=== PATIENT | female | born 1985 | race Caucasian/White ===

== ENCOUNTER 2016-04-14 11:11 | Inpatient (IN) | payer MEDICAID ==
[~2016-04-14] VITALS: Ht 152.4 cm; Wt 113.6 kg
[~2016-04-14 11:11] MED LIST: ACET325T33 PO
[2016-04-14 12:25] VITALS: Ht 152.4 cm; Wt 113.6 kg
[2016-04-14 12:35] VITALS: BP 125/71; PULSE 101; RESP 18
[2016-04-14] MEDS ORDERED: PREN1TAB62 PO (12:37)
--- NOTE | 2016-04-14 14:25 | HP ---
Date/Time of Note Date/Time of Note DATE: 04/14/16 TIME: 14:20 OB - History Hx of Present Free Text/Dictation admitted from [facility] at 38 weeks after confirmation of SROM Estimated Due Date: Apr 28, 2016 : 1 Para: 0 Care: Good Care Ultrasounds: Normal mid trimester US Obstetrical Complications: Other (asthma) Medical Complications: None Past Family/Social History * Past Medical, Surgical, Family and Obstetric Histories reviewed from chart. Blood Type: O+ Rubella: immune RPR/VDRL: Negative GBS Status: Negative HBsAG: Negative OB Admission Exam Vital Signs Vital Signs Vital Signs Date Time Temp Pulse Resp B/P Pulse Ox O2 Delivery O2 Flow Rate FiO2 04/14/16 12:35 98.3 101 18 125/71 100 Room Air Physical Exam HEENT: WNL Heart: Rhythm Normal Lungs: Clear, Equal Abdomen: WNL Extremities: Normal Reflexes: Normal Cervical Dilatation: 1cm Effacement: 25% Station: -3 Membranes: Ruptured Amniotic Fluid: Clear Heart Rate: 140's Accelerations: Accelerations Present Decelerations: No Decelerations Varibility: Moderate Contractions on Admission: None OB Assessment/Plan Other Assessment: SROM at term Induction Method: per Misoprostol Protocol SANDRA HOUSE MD Apr 14, 2016 14:25
[2016-04-14] MEDS ORDERED: DINOPROSTONE 10 MG VAG SUPP VAG ONE (15:00)
[2016-04-14] MEDS ORDERED: CARBOPROST 250 MCG INJ IM PRN (15:00)
[2016-04-14] MEDS ORDERED: OXYTOCIN 30 UNITS/LR 500 ML IV PRN (15:00)
[2016-04-14] MEDS ORDERED: LACTATED RINGER'S 1,000 ML IV PRN (15:00)
[2016-04-14] MEDS ORDERED: AMPICILLIN 2 GM/NS (PMX) 100 ML IV ONE (15:00)
[2016-04-14] MEDS ORDERED: LIDOCAINE 1% (MPF) 30 ML INJ INJ PRN (15:00)
[2016-04-14] MEDS ORDERED: BUTORPHANOL 2 MG INJ IV PRN (15:00)
[2016-04-14] MEDS ORDERED: OXYTOCIN 30 UNITS/LR 500 ML IV SCH ×2 (15:00)
[2016-04-14] MEDS ORDERED: METHYLERGONOVINE 0.2 MG INJ IM PRN (15:00)
[2016-04-14] MEDS ORDERED: MISOPROSTOL 200 MCG TAB PR PRN (15:00)
[2016-04-14] MEDS: LACTATED RINGER'S 1,000 ML IV SCH (17:19)
[2016-04-14 17:44] LABS: BASOPHILS % 0.3 % (0.0-2.0); EOSINOPHILS % 0.4 % (0.0-7.0); HEMATOCRIT 39.6 % (37.0-47.0); HEMOGLOBIN 13.4 g/dl (12.0-16.0); LYMPHOCYTES # 2.6 10^3/ul (0.8-2.9); LYMPHOCYTES % 25.2 % (15.0-51.0); MEAN CORPUSCULAR HEMOGLOBIN 29.8 pg (29.0-33.0); MEAN CORPUSCULAR HGB CONC 33.8 g/dl (32.0-37.0); MEAN CORPUSCULAR VOLUME 88.2 fl (82.0-101.0); MEAN PLATELET VOLUME 9.2 fl (7.4-10.4); MONOCYTE # 0.8 10^3/ul (0.3-0.9); MONOCYTES % 7.7 % (0.0-11.0); NEUTROPHIL # 6.8 10^3/ul (1.6-7.5); NEUTROPHILS % 66.4 % (39.0-77.0); PLATELET COUNT 260 10^3/UL (140-440); RED BLOOD COUNT 4.49 10^6/ul (4.20-5.40); RED CELL DISTRIBUTION WIDTH 15.4 % (11.5-14.5); UNCORRECTED WBC 10.2 10^3/ul (4.8-10.8); WHITE BLOOD COUNT 10.2 10^3/ul (4.8-10.8)
[2016-04-14 17:45] LABS: CONDITION 1; LH ANALYZER COMMENTS 1
[2016-04-14 17:54] LABS: INR 0.93; PROTIME 12.5 Sec (12.2-14.2)
[2016-04-14 17:55] LABS: PARTIAL THROMBOPLASTIN TIME 27.1 Sec (25.0-35.0)
[2016-04-14] MEDS: AMPICILLIN 1 GM/NS (PMX) 50 ML IV SCH (22:43)
[2016-04-14] MEDS ORDERED: TERBUTALINE 1 ML ONE (23:21)
[2016-04-14] MEDS ORDERED: TERBUTALINE 1 MG/ML INJ SC STA (23:27)
[2016-04-15] MEDS ORDERED: FENTAnyl 2MCG/ML-ROPIV 0.2% 100 ML ONE (00:21)
[2016-04-15] MEDS ORDERED: NALOXONE (0.4 MG/ML) INJ IV PRN (01:00)
[2016-04-15] MEDS ORDERED: FENTAnyl 2MCG/ML-ROPIV 0.2% 100 ML BAG EPI SCH (01:00)
[2016-04-15] MEDS: LACTATED RINGER'S 1,000 ML IV SCH ×2 (01:08→07:42)
[2016-04-15] MEDS: AMPICILLIN 1 GM/NS (PMX) 50 ML IV SCH ×3 (02:43→10:38)
[2016-04-15] MEDS ORDERED: TERBUTALINE 1 MG/ML INJ SC ONE (03:00)
[2016-04-15] MEDS ORDERED: ACETAMINOPHEN 325 MG TAB PO ONE (06:30)
--- NOTE | 2016-04-15 12:19 | LDN ---
Date/Time of Note Date/Time of Note DATE: 04/15/16 TIME: 12:15 Delivery Summary Placenta Delivered: Spontaneously Meconium: none Perineum intact?: No Perineal laceration: 2 Anesthesia type: Epidural Estimated blood loss: 350 Sponge & Needle done & correct: Yes All needle counts correct: Yes Any foreign bodies felt in the: No Problems: Delivery Information Sex Sex: male Apgars 1 Minute: 9 5 Minute: 9 Suctioning Nose & mouth suctioned at lorelei: Yes Delee suction performed: No Umbilical Cord Umbilical cord with: 3 Vessels Cord presentations: no nuchal cord Cord Blood was obtained: Yes Mother & Baby Disposition Disposition Laboratory Tests Test 04/14/16 13:00 04/14/16 17:19 Membranes Rupture POSITIVE Activated Partial Thromboplast Time 27.1Sec Basophils # 0.010^3/ul Basophils % 0.3% Blood Morphology Comment Eosinophils # 0.010^3/ul Eosinophils % 0.4% Hematocrit 39.6% Hemoglobin 13.4g/dl INR International Normalized Ratio 0.93 Lymphocytes # 2.610^3/ul Lymphocytes % 25.2% Mean Corpuscular Hemoglobin 29.8pg Mean Corpuscular Hemoglobin Concent 33.8g/dl Mean Corpuscular Volume 88.2fl Mean Platelet Volume 9.2fl Monocytes # 0.810^3/ul Monocytes % 7.7% Neutrophils # 6.810^3/ul Neutrophils % 66.4% Nucleated Red Blood Cells # 0.010^3/ul Nucleated Red Blood Cells % 0.0/100WBC Platelet Count 08008^3/UL Prothrombin Time 12.5Sec Prothrombin Time Ratio 1.0 Rapid Plasma Reagin NONREACTIVE Red Blood Count 4.4910^6/ul Red Cell Distribution Width 15.4% White Blood Count 10.210^3/ul Current Medications Medications (Trade) Dose Ordered Sig/Alysha Route PRN Reason Start Time Stop Time Status Last Admin Dose Admin Lactated Ringer's 1,000 ml @ 125 mls/hr Q8H IV 04/14/16 14:31 04/15/16 07:42 Ampicillin 100 ml @ 100 mls/hr ONCE ONCE IV 04/14/16 15:00 04/14/16 15:59 DC 04/14/16 18:14 Ampicillin (Ampicillin 1 Gm/ NS (Pmx)) 50 ml @ 100 mls/hr Q4 IV 2/13/17 18:00 04/15/16 03:25 DC 04/15/16 02:43 Dinoprostone (Cervidil Vaginal Supp) 10 mg ONCE ONCE VAG 04/14/16 15:00 04/14/16 15:01 DC 04/14/16 18:14 Butorphanol Tartrate (Stadol) 2 mg Q2H PRN IV PAIN 04/14/16 15:00 Lidocaine 30 ml 30 ml ONCE PRN INJ EPISIOTOMY/TEARING 04/14/16 15:00 Oxytocin/Lactated Ringer's 500 ml @ 125 mls/hr ONCE -MAY REPEAT X1 IV 04/14/16 15:00 04/15/16 11:44 Oxytocin/Lactated Ringer's 500 ml @ 125 mls/hr ONCE IV 04/14/16 15:00 Lactated Ringer's 1,000 ml @ 2,000 mls/hr Q30M PRN IV PRE-EPIDURAL BOLUS 04/14/16 15:00 Oxytocin/Lactated Ringer's 500 ml @ 0 mls/hr ONCE PRN IV For Hemorrhage Management 04/14/16 15:00 Methylergonovine Maleate (Methergine) 0.2 mg ONCE PRN IM VAGINAL BLEEDING 04/14/16 15:00 Carboprost Tromethamine (Hemabate) 250 mcg ONCE PRN IM VAGINAL BLEEDING 04/14/16 15:00 Misoprostol 1000 mcg 1,000 mcg ONCE PRN OH VAGINAL BLEEDING 04/14/16 15:00 Terbutaline Sulfate (Brethine) 1 ml @ ud STK-MED ONCE .ROUTE 04/14/16 23:21 04/14/16 23:22 DC Terbutaline Sulfate 0.25 mg 0.25 mg ONCE STAT SC 04/14/16 23:27 04/14/16 23:30 DC 04/14/16 23:33 Fentanyl/ Ropivacaine 100 ml @ ud STK-MED ONCE .ROUTE 04/15/16 00:21 04/15/16 00:22 DC Naloxone HCl (Narcan) 0.2 mg Q2M PRN IV FOR RESP RATE 8 OR LESS 04/15/16 01:00 Fentanyl/ Ropivacaine 100 ml EPIDURAL (PCEA) EPI 04/15/16 01:00 04/15/16 08:11 Terbutaline Sulfate 0.25 mg 0.25 mg ONCE ONCE SC 04/15/16 03:00 04/15/16 03:01 DC 04/15/16 02:35 Ampicillin (Ampicillin 1 Gm/ NS (Pmx)) 50 ml @ 100 mls/hr Q4H IV 04/15/16 06:30 04/15/16 10:38 Acetaminophen (Tylenol Tab) 650 mg ONCE ONCE PO 04/15/16 06:30 04/15/16 06:39 DC 04/15/16 06:42 Mom & Baby to Maternity; Good: Yes Mom transferred to: Med/Surg Baby to NICU: No HECTOR ESPARZA MD Apr 15, 2016 12:19
[2016-04-15] MEDS ORDERED: IBUPROFEN 600 MG TAB PO ONE (13:00)
[2016-04-15 13:45] VITALS: BP 133/75; PULSE 86; RESP 18
[2016-04-15] MEDS ORDERED: OXYTOCIN 30 UNITS/LR 500 ML IV SCH (14:10)
[2016-04-15 14:15] VITALS: BP 136/73; PULSE 108; RESP 17
[2016-04-15] MEDS ORDERED: CARBOPROST 250 MCG INJ IM PRN ×2 (14:30→15:30)
[2016-04-15] MEDS ORDERED: LANOLIN 7 GM TUBE TOP PRN ×2 (14:30→15:30)
[2016-04-15] MEDS ORDERED: DIBUCAINE 1% 30 GM OINT PR PRN ×2 (14:30→15:30)
[2016-04-15] MEDS ORDERED: ACETAMINOPHEN 500 MG TAB PO PRN (14:30)
[2016-04-15] MEDS ORDERED: OXYTOCIN 30 UNITS/LR 500 ML IV PRN ×2 (14:30→15:30)
[2016-04-15] MEDS ORDERED: BENZOCAINE 20% 56 ML SPRAY TOP PRN (14:30)
[2016-04-15] MEDS ORDERED: METHYLERGONOVINE 0.2 MG INJ IM PRN ×2 (14:30→15:30)
[2016-04-15] MEDS ORDERED: MISOPROSTOL 200 MCG TAB PR PRN ×2 (14:30→15:30)
[2016-04-15] MEDS ORDERED: WITCH HAZEL/GLYCERIN PAD PR PRN (14:30)
[2016-04-15] MEDS ORDERED: OXYCODONE/ASPIRIN (4.88/325) TAB PO PRN ×2 (14:30)
[2016-04-15] MEDS ORDERED: IBUPROFEN 600 MG TAB PO PRN (14:30)
[2016-04-15] MEDS ORDERED: SENNA/DOCUSATE NA (8.6MG/50MG) TAB PO PRN (14:30)
[2016-04-15] MEDS: LACTATED RINGER'S 1,000 ML IV* SCH ×2 (15:23→23:23)
[2016-04-15] MEDS ORDERED: ACETAMINOPHEN/CODEINE #3 TAB PO PRN ×2 (15:30)
[2016-04-15] MEDS ORDERED: ZOLPIDEM 5 MG TAB PO PRN (15:30)
[2016-04-15 16:30] VITALS: BP 135/85; PULSE 72; RESP 18
[2016-04-15] MEDS: WITCH HAZEL/GLYCERIN PAD PR PRN (16:51)
[2016-04-15] MEDS: BENZOCAINE 20% 56 ML SPRAY TOP PRN (16:52)
[2016-04-15] MEDS: CEPHALEXIN 500 MG CAP PO SCH (18:14)
[2016-04-15] MEDS: IBUPROFEN 600 MG TAB PO SCH (18:15)
[2016-04-15 20:00] VITALS: BP 108/59; PULSE 96; RESP 18
[2016-04-15] MEDS: MAGNESIUM HYDROXIDE 30ML CUP PO SCH (22:26)
[2016-04-15] MEDS: SENNA/DOCUSATE NA (8.6MG/50MG) TAB PO SCH (22:26)
[2016-04-16] MEDS: CEPHALEXIN 500 MG CAP PO SCH ×5 (00:42→23:35)
[2016-04-16] MEDS: IBUPROFEN 600 MG TAB PO SCH ×5 (00:42→23:35)
[2016-04-16 04:00] VITALS: BP 103/51; PULSE 20; RESP 18
[2016-04-16] MEDS: LACTATED RINGER'S 1,000 ML IV* SCH (07:23)
[2016-04-16 07:46] LABS: BASOPHILS % 0.4 % (0.0-2.0); EOSINOPHILS # 0.1 10^3/ul (0.0-0.5); EOSINOPHILS % 0.6 % (0.0-7.0); HEMATOCRIT 29.2 % (37.0-47.0); LYMPHOCYTES # 2.5 10^3/ul (0.8-2.9); LYMPHOCYTES % 21.7 % (15.0-51.0); MEAN CORPUSCULAR HEMOGLOBIN 30.5 pg (29.0-33.0); MEAN CORPUSCULAR HGB CONC 34.2 g/dl (32.0-37.0); MEAN CORPUSCULAR VOLUME 89.2 fl (82.0-101.0); MEAN PLATELET VOLUME 8.9 fl (7.4-10.4); MONOCYTE # 0.7 10^3/ul (0.3-0.9); MONOCYTES % 6.3 % (0.0-11.0); NEUTROPHIL # 8.3 10^3/ul (1.6-7.5); PLATELET COUNT 202 10^3/UL (140-440); RED BLOOD COUNT 3.28 10^6/ul (4.20-5.40); RED CELL DISTRIBUTION WIDTH 15.7 % (11.5-14.5); UNCORRECTED WBC 11.7 10^3/ul (4.8-10.8); WHITE BLOOD COUNT 11.7 10^3/ul (4.8-10.8)
[2016-04-16 07:52] LABS: CONDITION 1; LH ANALYZER COMMENTS 1
[2016-04-16 08:00] VITALS: BP 107/63; PULSE 83; RESP 17
[2016-04-16] MEDS: MAGNESIUM HYDROXIDE 30ML CUP PO SCH ×2 (09:52→21:00)
[2016-04-16] MEDS: SENNA/DOCUSATE NA (8.6MG/50MG) TAB PO SCH ×2 (09:52→21:00)
--- NOTE | 2016-04-16 13:42 | DS ---
Date/Time of Note Date/Time of Note home next day DATE: 04/16/16 TIME: 13:41 Obstetrical Discharge Record Final Diagnosis Final Diagnosis: Term delivered Vaginal Delivery Obstetrical Delivery: Spontaneous, Laceration, Repaired Complications Augmentation: Yes Condition on Discharge Physical Assessment Last Vitals: see nurses notes Voiding: Yes Bowel Movement: Yes Breast: Soft, non-tender, Filling Fundus: Firm Abdomen and Incision: soft BS + Episiotomy: NA perineum: healing Calf Tenderness: No Patient Condition: Good SANDRA HOUSE MD Apr 16, 2016 13:42
--- NOTE | 2016-04-16 13:56 | PD.PPDC ---
RISK MANAGEMENT MANAGER Discharge Instruction Provider Information Physician Information 30 y/o female had vaginal delivery Diagnosis Final Diagnosis: S/P vaginal delivery Condition Patient Condition: Good Diet Diet: Resume Regular Diet Activity/Restrictions Activity: Normal Activity May Shower Restrictions: Nothing in the Vagina Return to Work or School: Jun 02, 2016 Follow-up Follow-up with Physician: 4, Day/Days (in clinic ) Return to clinic for OB Instructions: Breast Tenderness Depression SANDRA HOUSE MD Apr 16, 2016 13:56
[2016-04-16] MEDS ORDERED: IBUP-1542 PO (13:57)
[2016-04-16 16:00] VITALS: BP 119/63; PULSE 85; RESP 19
[2016-04-16] MEDS: BENZOCAINE 20% 56 ML SPRAY TOP PRN (19:11)
[2016-04-16] MEDS: WITCH HAZEL/GLYCERIN PAD PR PRN (19:12)
--- NOTE | 2016-04-16 21:25 | NSTRPT ---
NST Information Datetime Report Generated by CPN: 04/16/2016 21:25 Datetime: 04/14/2016 08:16 NST Information EGA: 38.0 Test Number: 10 Time on Monitor: 04/14/2016 08:50 Time off Monitor: 04/14/2016 09:30 NST Duration (Min): 40 Reason for NST: Other Reason for NST Other: Asthma Test and Monitor Explained: Monitor Explained; Test Explained; Verbalized Understanding Pulse: 91 Resp: 18 SBP: 125 DBP: 76 Test Evaluation NST Interventions: PO Hydration Patient States Movement: Present Contraction Frequency: 0 FHR Baseline : 130 Variability: Moderate 6-25bpm Accelerations: 15X15 Decelerations: None FHR Category: Category I NST Results: Reactive Provider Notified: Yves Comments: To u/s LILIAN-9.6 cm, pt states of gush of fluid this monring that trickled down her leg, p revious LILIAN-15. [facility]. 0901-Dr Marinelli paged, [phone]-paged [phone] to Dr Marinelli, pt to triage for r/o SROM, report to Maria Isabel RN in triage. 0946-POC expl ained to pt, states understanding and denies further questions at this time. Pt with friend to Triag e. Electronically Signed By E-Signature: with User ID: [id number] Datetime: 04/10/2016 08:22 NST Information EGA: 37.3 NST Duration (Min): 28 Datetime: 04/07/2016 08:16 NST Information EGA: 37.0 NST Duration (Min): 36 Datetime: 04/03/2016 08:48 NST Information EGA: 36.3 NST Duration (Min): 63 Datetime: 03/31/2016 08:25 NST Information EGA: 36.0 NST Duration (Min): 45 Datetime: 03/27/2016 08:20 NST Information EGA: 35.3 NST Duration (Min): 39 Datetime: 03/24/2016 08:19 NST Information EGA: 35.0 NST Duration (Min): 21 Datetime: 03/20/2016 08:15 NST Information EGA: 34.3 NST Duration (Min): 78 Datetime: 03/17/2016 08:20 NST Information EGA: 34.0 NST Duration (Min): 20 Datetime: 03/13/2016 10:52 NST Information EGA: 33.3 NST Duration (Min): 28
[2016-04-17 03:58] VITALS: BP 112/62; PULSE 83; RESP 18
[2016-04-17] MEDS: CEPHALEXIN 500 MG CAP PO SCH ×2 (05:25→11:38)
[2016-04-17] MEDS: IBUPROFEN 600 MG TAB PO SCH ×2 (05:25→11:38)
[2016-04-17 07:45] VITALS: BP 110/62; PULSE 83; RESP 19
[2016-04-17] MEDS: MAGNESIUM HYDROXIDE 30ML CUP PO SCH (08:07)
[2016-04-17] MEDS: SENNA/DOCUSATE NA (8.6MG/50MG) TAB PO SCH (08:07)
[2016-04-17] MEDS: BENZOCAINE 20% 56 ML SPRAY TOP PRN (08:08)
[2016-04-17] MEDS: WITCH HAZEL/GLYCERIN PAD PR PRN (08:08)
[2016-04-17] MEDS ORDERED: DIPHTH/TET/ACEL PERTUSS (ADULT) 0.5 ML VIAL IM* ONE ×2 (09:00)
[2016-04-17] MEDS ORDERED: VARICELLA VACCINE LIVE/PF 1,350 UNIT/0.5 ML ML SC* ONE (09:00)
[2016-04-17] MEDS ORDERED: MEASLES,MUMPS,RUBELLA VACCINE INJ SC* ONE (09:00)
== END 2016-04-17 15:05 | disposition home or self-care (01) | DRG 775 ==
LOC: OBT 11:11 → L-D 11:11 → OBT 14:24 → L-D 14:25 → PP1 04-15 14:30
PROVIDERS: ADMIT Obstetrics & Gynecology; ATTEND Obstetrics & Gynecology
PROC: 10E0XZZ Delivery of Products of Conception, External Approach (ICD-10-PCS; principal; 2016-04-14)
PROC: 0KQM0ZZ Repair Perineum Muscle, Open Approach (ICD-10-PCS; 2016-04-14)
DX: O70.1 Second degree perineal laceration during delivery (principal); Z37.0 Single live birth; Z68.42 Body mass index [BMI] 45.0-49.9, adult; O99.214 Obesity complicating childbirth; E66.01 Morbid (severe) obesity due to excess calories; Z3A.38 38 weeks gestation of pregnancy
CPT/HCPCS: 62319; 84112; 85025; 85610; 85730; 86592; 86900; 86901; 90715; 90716; 99464; G0463; J0290; J2590; J3010; J3105; J7120

== ENCOUNTER 2016-06-15 11:04 | Emergency (ER) | payer MEDICAID ==
[~2016-06-15] VITALS: Ht 157.5 cm; Wt 104.5 kg
[~2016-06-15 11:04] MED LIST changes: -ACET325T33 PO; +IBUP-1542 PO; +PREN1TAB62 PO
[2016-06-15 11:05] VITALS: Ht 157.5 cm; Wt 104.5 kg
[2016-06-15] MEDS ORDERED: KETOROLAC 30 MG INJ IM STA (11:19)
[2016-06-15] MEDS ORDERED: HYDR-906 PO (11:26)
[2016-06-15] MEDS ORDERED: CYCL-319 PO (11:26)
[2016-06-15] MEDS ORDERED: IBUP-1542 PO (11:26)
[2016-06-15 11:30] LABS: URINE BLOOD (Dip) POC Trace-intact (NEGATIVE)
[2016-06-15] MEDS ORDERED: HYDROCODONE/APAP (10/325) TAB PO ONE (11:30)
--- NOTE | 2016-06-15 11:34 | ERD ---
ER Documentation Chief Complaint Date/Time DATE: 06/15/16 TIME: 11:29 Chief Complaint 9/10 lower back pain x 4 days UKN cause HPI Patient is a 30-year-old female who presents to the emergency department with lower back pain 4 days. Patient states 4 days ago she was sitting on the couch when she sat down awkwardly and started to have sudden pain. Patient states pain originates in her lower back and occasionally radiates her bilateral legs. Patient reports taking ibuprofen for symptoms with minimal relief. Patient denies any saddle anesthesia, urinary incontinence, stool incontinence, fevers, chills, night pain. Patient denies any recent traumas or falls. Patient states that she had an epidural 2 months ago and she is unsure of this is related to her lower back pain. Patient states she is having pain with ambulating. ROS All systems reviewed and are negative except as per history of present illness. Medications Home Meds Active Scripts Cyclobenzaprine Hcl* (Cyclobenzaprine Hcl*) 10 Mg Tablet, 10 MG PO TID, #15 TAB Prov:RENAE WHALEY PA-C 06/15/16 Ibuprofen* (Motrin*) 600 Mg Tab, 600 MG PO Q6, #30 TAB Prov:RENAE WHALEY PA-C 06/15/16 Hydrocodone/Acetaminophen (Boise 5-325 Tablet) 1 Each Tablet, 1 TAB PO Q6H Y for PAIN, #10 TAB Prov:RENAE WHALEY PA-C 06/15/16 Ibuprofen* (Ibuprofen*) 600 Mg Tablet, 600 MG PO Q6, #20 TAB 0 Refills Prov:SANDRA HOUSE MD 04/16/16 Reported Medications Vit-Iron Fumarate-FA ( Vitamin Tablet) 1 Each Tablet, 1 TAB PO DAILY, TAB 04/14/16 Allergies Allergies: Coded Allergies: No Known Allergy (Unverified , 04/14/16) PMhx/Soc History of Surgery: No Anesthesia Reaction: No Hx Neurological Disorder: No Hx Respiratory Disorders: No Hx Cardiac Disorders: No Hx Psychiatric Problems: No Hx Miscellaneous Medical Probl: No Hx Alcohol Use: No Hx Substance Use: No Hx Tobacco Use: No FmHx Family History: No diabetes Physical Exam Vitals Vital Signs Date Time Temp Pulse Resp B/P Pulse Ox O2 Delivery O2 Flow Rate FiO2 06/15/16 11:05 98.3 87 18 124/67 99 Physical Exam GENERAL: Well-developed, well-nourished female. Appears in no acute distress. Eating in full sentences HEAD: Normocephalic, atraumatic. EYES: Pupils are equally reactive bilaterally. EOMs grossly intact. No conjunctival erythema. ENT: Moist mucous membranes. No uvula deviation. No kissing tonsils. NECK: Supple. No meningismus. Normal range of motion of the neck. No midline tenderness. LUNG: Clear to auscultation bilaterally. No rhonchi, wheezing, rales or coarse breath sounds. HEART: Regular rate and rhythm. No murmurs, rubs or gallops. BACK: No midline tenderness. Tender to palpation of bilateral paraspinous lumbar muscles. EXTREMITIES: Equal pulses bilaterally. No peripheral clubbing, cyanosis or edema. No unilateral leg swelling. NEUROLOGIC: Alert and oriented. Moving all four extremities without any difficulty. Normal speech. SKIN: Normal color. Warm and dry. No rashes or lesions. Results 24 hrs Current Medications Medications (Trade) Dose Ordered Sig/Alysha Route PRN Reason Start Time Stop Time Status Last Admin Dose Admin Ketorolac Tromethamine (Toradol) 30 mg ONCE STAT IM 06/15/16 11:19 06/15/16 11:21 DC Acetaminophen/ Hydrocodone Bitart (Boise (10/325)) 1 tab ONCE ONCE PO 06/15/16 11:30 06/15/16 11:31 Procedures/MDM MEDICAL DECISION MAKING: This is a 22-year-old female who presents with lower back pain x 4 days. Patient denied any recent traumas or falls. Vital signs were reviewed. Patient was afebrile. Patient denied any saddle anesthesia, urinary incontinence, bowel incontinence, night pain or recent trauma. Urine was negative. Urine dip was negative for infection or hematuria. Given that the patient denies any recent falls or trauma, x-ray imaging of the spine was not obtained. Given these findings, the patient's presentation is most consistent with lumbar strain versus muscle spasms. I have a much lower clinical concern for cauda equine syndrome, spinal fractures, epidural abscess, spinal metastases, osteomyelitis, aortic dissection, ruptured or leaking AA, DJD, pyelonephritis or nephrolithiasis. I explained to the patient I am unsure if her back pain is due to recent epidural. She was advised that she should follow-up with her primary care physician for further management of her symptoms. Patient also advised that she may need to see an logistics management specialist and/or obtain MRI imaging if the pain persists. PRESCRIPTIONS: Ibuprofen, Boise, Flexeril DISCHARGE: At this time, patient is stable for discharge and outpatient management. RICE therapy and ROM exercises were advised to avoid stiffness. I have instructed the patient to follow-up with his/her primary care physician in 1-2 days. I have discussed with the patient the possibility of needing to see an logistics management specialist for further workup and imaging if the pain persists. I have instructed the patient to promptly return to the ER for any new or worsening symptoms including increased pain, swelling, warmth, urinary incontinence, stool incontinence, weakness or numbness. The patient and/or family expressed understanding of and agreement with this plan. All questions were answered. Home care instructions were provided. Departure Diagnosis: Primary Impression: Lumbar pain Chronicity: acute Back pain laterality: bilateral Sciatica presence: unspecified whether sciatica present Qualified Code: M54.5 - Acute bilateral low back pain, with sciatica presence unspecified Condition: Stable Patient Instructions: Back Pain (Acute Or Chronic) Referrals: [facility] YOU HAVE RECEIVED A MEDICAL SCREENING EXAM AND THE RESULTS INDICATE THAT YOU DO NOT HAVE A CONDITION THAT REQUIRES URGENT TREATMENT IN THE EMERGENCY DEPARTMENT. FURTHER EVALUATION AND TREATMENT OF YOUR CONDITION CAN WAIT UNTIL YOU ARE SEEN IN YOUR DOCTORS OFFICE WITHIN THE NEXT 1-2 DAYS. IT IS YOUR RESPONSIBILITY TO MAKE AN APPOINTMENT FOR FOLOW-UP CARE. IF YOU HAVE A PRIMARY DOCTOR --you should call your primary doctor and schedule an appointment IF YOU DO NOT HAVE A PRIMARY DOCTOR YOU CAN CALL OUR PHYSICIAN REFERRAL HOTLINE AT IF YOU CAN NOT AFFORD TO SEE A PHYSICIAN YOU CAN CHOSE FROM THE FOLLOWING [facility] [address] [facility] [address] [facility] [address] [facility] [address] [facility] [address] [facility]. [facility]. [address] [facility]. [facility] YOU HAVE RECEIVED A MEDICAL SCREENING EXAM AND THE RESULTS INDICATE THAT YOU DO NOT HAVE A CONDITION THAT REQUIRES URGENT TREATMENT IN THE EMERGENCY DEPARTMENT. FURTHER EVALUATION AND TREATMENT OF YOUR CONDITION CAN WAIT UNTIL YOU ARE SEEN IN YOUR DOCTORS OFFICE WITHIN THE NEXT 1-2 DAYS. IT IS YOUR RESPONSIBILITY TO MAKE AN APPOINTMENT FOR FOLOW-UP CARE. IF YOU HAVE A PRIMARY DOCTOR --you should call your primary doctor and schedule and appointment IF YOU DO NOT HAVE A PRIMARY DOCTOR YOU CAN CALL OUR PHYSICIAN REFERRAL HOTLINE AT . IF YOU CAN NOT AFFORD TO SEE A PHYSICIAN YOU CAN CHOSE FROM THE FOLLOWING [facility] INSTITUTIONS: [facility] [address] [place] [address] [facility] [address] [place], [place] [id number] [place] [address] [address] [place] [address] [facility] Hours: Mon-Fri 9:00 AM - 5:00 PM Additional Instructions: Call your primary care doctor TOMORROW for an appointment during the next 1-2 days.See the doctor sooner or return here if your condition worsens before your appointment time. Patient was advised that she may need to follow-up with an logistics management specialist and/or obtain MRI imaging if her symptoms persist. Patient was advised not to take Bo[place] or Flexeril when operating machinery. RENAE WHALEY PA-C Jun 15, 2016 11:34
== END 2016-06-15 12:02 | disposition home or self-care (01) ==
LOC: FTE 11:04
DX: M54.5 Low back pain (principal)
CPT/HCPCS: 81003; J1885; Z7610; 96372